=== PATIENT | male | born 1980 | race Caucasian/White ===

== ENCOUNTER 2016-03-12 05:25 | Emergency (ER) | payer OTHER ==
[~2016-03-12] VITALS: Ht 172.7 cm; Wt 96.2 kg
[~2016-03-12 05:25] MED LIST: CLON2TAB PO
[2016-03-12] MEDS ORDERED: LIDOCAINE VISCOUS 2% UD 15 ML UDC ONE (06:29)
[2016-03-12] MEDS ORDERED: MAG HYDROX/AL HYDROX/SIMETH 30 ML UDC ONE (06:29)
[2016-03-12] MEDS ORDERED: MAG HYDROX/AL HYDROX/SIMETH 30 ML UDC PO ONE (06:30)
[2016-03-12] MEDS ORDERED: LIDOCAINE VISCOUS 2% UD 15 ML UDC MM ONE (06:30)
[2016-03-12 06:35] VITALS: BP 153/75
== END 2016-03-12 06:36 | disposition home or self-care (01) ==
LOC: ER 05:25
DX: R10.32 Left lower quadrant pain (principal); F17.200 Nicotine dependence, unspecified, uncomplicated; F41.9 Anxiety disorder, unspecified
CPT/HCPCS: 99282; A4606; Z7610